=== PATIENT | male | born 1975 | race Caucasian/White ===

== ENCOUNTER 2025-06-14 10:43 | Emergency (ER) | payer OTHER ==
[2025-06-14] MEDS: Tetracaine HCl/PF 0.5% 4 ML Bottle EYEBOTH ONE (11:27)
[2025-06-14] MEDS: Fluorescein 1 MG Ophth Strip EYEBOTH ONE (11:27)
[2025-06-14 12:15] VITALS: BP 147/81; PULSE 78
== END 2025-06-14 12:13 | disposition home or self-care (01) ==
LOC: MW.ED 10:43
DX: H57.89 Other specified disorders of eye and adnexa (principal); Z88.0 Allergy status to penicillin; Z79.899 Other long term (current) drug therapy
CPT/HCPCS: 99283; J3490